=== PATIENT | female | born 1985 | race Two or more races ===

== ENCOUNTER 2024-08-04 21:13 | Emergency (ER) | payer MEDICAID, SELFPAY ==
[2024-08-04 21:14] VITALS: BMI 90.8
[2024-08-04 21:22] VITALS: BP 139/94; PULSE 94; RESP 16; TEMP 36.4; O2SAT 98
--- NOTE | 2024-08-04 21:28 | XR_ITS ---
Examination: Ribs, left, with PA chest, 5 views Technique: Chest PA, RIBS AP, RPO, LPO, AP coned lower ribs 5 views Exam date and time: August 04, 2024 at 9:48 PM Indications: Injury to the left chest 4 days ago, left rib pain Findings: Normal heart size No pneumothorax No acute rib fractures Impression: No pneumothorax pulmonary contusion or hemothorax No acute rib fractures
--- NOTE | 2024-08-04 21:36 | EDNOTE_ITS ---
ED General RME/HPI General Chief complaint: General Adult/Misc Complain Stated complaint: LEFT SIDE RIB PAIN Time Seen by Provider: 08/04/24 21:28 Source: patient Arrival date/time: 08/04/24 21:13 38-year-old female with no known medical history presents to the emergency room with a chief complaint of left-sided rib pain x 4 days. Patient states he was playing football on the street when she ran into a parked car. Mode of arrival: ambulatory Limitations: no limitations Related Data Previous Rx's ?Medication ?Instructions ?Recorded amoxicillin 875 mg-potassium 1 tab PO BID #30 tabs 12/11/23 clavulanate 125 mg tablet prednisone 50 mg tablet 50 mg PO QDAY #7 tabs 12/11/23 Allergies Allergy/AdvReac Type Severity Reaction Status Date / Time No Known Allergies Allergy Verified 12/11/23 04:40 Review of Systems Review of Systems Systems Reviewed: All systems reviewed, normal except as documented Constitutional Constitutional: Reports system reviewed and no additional complaints, except as documented, Denies fatigue, Denies fever(s), Denies headache(s) and Denies weakness Eyes Eyes: Reports system reviewed and no additional complaints, except as documented, Denies blurry vision and Denies change in vision ENT Ears, Nose, Mouth, and Throat: Reports system reviewed and no additional complaints, except as documented, Denies otalgia, Denies headache(s), Denies nasal congestion, Denies throat swelling and Denies vertigo Cardiovascular Cardiovascular: Reports system reviewed and no additional complaints, except as documented, Denies chest pain, Denies dyspnea and Denies dyspnea on exertion Respiratory Respiratory: Reports system reviewed and no additional complaints, except as documented, Denies chest congestion, Denies cough, Denies dyspnea, Denies dyspnea on exertion and Denies wheezing Gastrointestinal Gastrointestinal: Reports system reviewed and no additional complaints, except as documented, Denies abdominal pain, Denies cramping, Denies nausea and Denies vomiting Genitourinary Genitourinary: Reports system reviewed and no additional complaints, except as documented Musculoskeletal Musculoskeletal: Reports system reviewed and no additional complaints, except as documented, Reports arthralgias and Denies back pain Integumentary/Breasts Skin/Breast: Reports system reviewed and no additional complaints, except as documented and Denies wounds Neurologic Neurologic: Reports system reviewed and no additional complaints, except as documented, Denies confusion, Denies headache(s), Denies lack of coordination, Denies vertigo and Denies weakness Psychiatric Psychiatric: Reports system reviewed and no additional complaints, except as documented, Denies anxiety, Denies confusion, Denies depression, Denies paranoia, Denies suicidal ideation and Denies tactile hallucinations Endocrine Endocrine: Reports system reviewed and no additional complaints, except as documented and Denies fatigue Hematologic/Lymphatic Hematologic/Lymphatic: Reports system reviewed and no additional complaints, except as documented and Denies lymphadenopathy Allergic/Immunologic Allergic/Immunologic: Reports system reviewed and no additional complaints, except as documented, Denies throat swelling, Denies urticaria and Denies wheezing ED Exam General Limitations: Present no limitations General appearance: Present alert and in no apparent distress Head Head exam: Present atraumatic Eye Eye exam: Present normal appearance, PERRL and EOMI ENT ENT exam: Present normal exam, normal oropharynx and mucous membranes moist Neck Neck exam: Present normal inspection, full ROM and trachea midline Chest Chest inspection: Present normal inspection and symmetric chest wall rise Respiratory Respiratory exam: Present normal lung sounds bilaterally; Absent respiratory dis tress, wheezes, stridor, accessory muscle use or prolonged expiratory phase Cardiovascular Cardiovascular exam: Present regular rate, normal rhythm and normal heart sounds Abdominal Exam Abdominal exam: Present soft and normal bowel sounds Extremities Exam Extremities exam: Present normal inspection and full ROM Back Exam Back exam: Present normal inspection and full ROM Neurological Exam Neurological exam: Present alert, oriented X3 and CN II-XII intact Psychiatric Psychiatric exam: Present normal affect and normal mood Skin Skin exam: Present warm, dry, intact and normal color Course Quality Measures none Orders Category Date Time Status XR ribs LT min 3V w CXR1V Stat Exams 08/04/24 21:28 Completed Vital Signs Vital signs: Vital Signs Temperature 97.6 F 08/04/24 21:22 Pulse Rate 94 08/04/24 21:22 Respiratory Rate 16 08/04/24 21:22 Blood Pressure 139/94 H 08/04/24 21:22 Pulse Oximetry (%) 98 08/04/24 21:22 Oxygen Delivery Method Room Air 08/04/24 21:22 O2 saturation 98% within normal limits MDM Patient data External records reviewed:: [facility] previous records Clinical information provided by:: patient Social determinants that could affect healthcare access:: none Patient has the following chronic illnesses:: No chronic illness How is presenting disease/condition affected by chronic disease/condition?: no chronic disease Evaluation data The following diagnostics were reviewed and interpreted by me:: lab results and radiology exam(s) Lab and/or radiology exams considered but not ordered:: Labs and radiology exams considered and ordered Interpretation Summary: Left rib [id number]: Normal heart size No pneumothorax No acute rib fractures Impression: No pneumothorax pulmonary contusion or hemothorax No acute rib fractures Medications Medications considered but not ordered:: No medication given Medication administrations:: No medication given Consultations Consultation(s) initiated? (list below): No Diagnosis Differential Diagnosis ED Complaint MDM: Rib contusion/rib fracture/pneumo thorax/hemothorax Most likely diagnosis given after review of the tests above:: Rib contusion Admission Indicated Admission indicated?: not indicated Explain why admission is indicated or not indicated:: N/A Admission Request Was there a request for admission?: No Disposition Plan Disposition Plan: Discharge Discharge Attestation Discharge Attestation: The patient and all family members were given an opportunity to ask questions and understood the discharge instructions. Discharge instructions specifically effects, indications for sooner follow up or return to the emergency department, and the expected course of current diagnosis. Patient condition: Stable Medical Decision Making MDM Narrative MDM Narrative: 38-year-old female with no known medical history presents to the emergency room with a chief complaint of left-sided rib pain x 4 days. Patient states he was playing football on the street when she ran into a parked car. Clinically the patient appears nontoxic and in no apparent distress. Physical examination shows pain and tenderness to the left ribs during palpation. The patient has clear bilateral lung sounds to auscultation. X-ray of the left ribs was completed and was negative for any acute fractures. There is no pneumothorax or hemothorax. Patient was discharged and educated to follow-up with primary care provider and return to the emergency room for any evidence of worsening signs or symptoms Differential Diagnosis Differential Diagnosis: Rib contusion/rib fracture/pneumothorax/hemothorax Discharge Plan Plan Patient Disposition: HOME (Self Care) Disposition Comment: Stable Prescriptions/Referrals Prescriptions/Med Rec: No Action prednisone 50 mg tablet 50 mg PO QDAY Qty: 7 0RF amoxicillin-pot clavulanate 875-125 mg tablet 1 tab PO BID Qty: 30 0RF Referrals: Percy Luong MD [Primary Care Provider] - In 1 week Problem List Clinical Impression: Contusion of rib on left side Patient/Caregiver Discharge Instructions Education Materials: ED Chest Wall Contusion, ED Contusion, Rib Additional Instructions: Please follow-up with your primary care provider next 24 to 48 hours. Chest x-ray was completed and was negative for any rib fractures or injuries to your lungs. For any evidence of worsening signs or symptoms please return to the emergency room immediately Print Language: Venezuelan Stand Alone Forms: Myrna Award Info., Patient Portal Info Letter PA/SALES LEDGER ADMINISTRATOR Supervising Physician PA/SALES LEDGER ADMINISTRATOR Supervising Physician: Dr. Chowdhury
[2024-08-04 22:36] VITALS: RESP 18
== END 2024-08-04 22:36 | disposition home or self-care (01) ==
PROVIDERS: Emergency Provider Emergency Medicine; PCP Family Medicine
DX: S20.212A Contusion of left front wall of thorax, initial encounter (principal); W22.8XXA Striking against or struck by other objects, initial encounter; Y93.61 Activity, american tackle football; Y92.810 Car as the place of occurrence of the external cause
CPT/HCPCS: 71101; 99283

== ENCOUNTER 2024-09-19 20:58 | Emergency (ER) | payer MEDICAID, SELFPAY ==
[2024-09-19 20:59] VITALS: BMI 41.1
[2024-09-19 21:21] VITALS: BP 117/84; PULSE 106; RESP 18; TEMP 36.9; O2SAT 97
--- NOTE | 2024-09-19 21:38 | PD.EDEAR ---
ED Ear RME/HPI General Chief complaint: Ear Stated complaint: BILAT EARPAIN, THROAT PAIN, CONGESTION, RASH Time Seen by Provider: 09/19/24 21:04 Arrival date/time: 09/19/24 20:58 This is a 39-year-old female that comes in with complaints of bilateral ear pain for the past week. Patient also complains of sore throat and a rash throughout her body. Patient reports that her left ear was supposed to have surgery to repair the TM but she never had the surgery. Patient reports trouble hearing to both ears that has been going on for years. Patient denies any fever or chills. Related Data Previous Rx's ?Medication ?Instructions ?Recorded amoxicillin 875 mg-potassium 1 tab PO BID #30 tabs 12/11/23 clavulanate 125 mg tablet prednisone 50 mg tablet 50 mg PO QDAY #7 tabs 12/11/23 amoxicillin 875 mg-potassium 1 tab PO Q12H #14 tabs 09/19/24 clavulanate 125 mg tablet diphenhydramine HCl 25 mg capsule 50 mg (2 x 25 mg) PO TID PRN 09/19/24 (Benadryl) allergy symptoms #20 caps ibuprofen 800 mg tablet 800 mg PO Q6H PRN pain #14 tabs 09/19/24 Allergies Allergy/AdvReac Type Severity Reaction Status Date / Time No Known Allergies Allergy Verified 12/11/23 04:40 Review of Systems Review of Systems Systems Reviewed: All systems reviewed, normal except as documented Past Medical History Past Medical History Comments PMH COMMENT: no pmh ED Exam General General appearance: Present alert and in no apparent distress Head Head exam: Present atraumatic Eye Eye exam: Present normal appearance, PERRL and EOMI ENT ENT exam: Present normal oropharynx, mucous membranes moist and other (Left TM loss of landmarks. Ear canal erythemic and painful to manipulate.) Neck Neck exam: Present normal inspection, full ROM and trachea midline Chest Chest inspection: Present normal inspection and symmetric chest wall rise Respiratory Respiratory exam: Present normal lung sounds bilaterally Cardiovascular Cardiovascular exam: Present regular rate Abdominal Exam Abdominal exam: Present soft Extremities Exam Extremities exam: Present normal inspection and full ROM Back Exam Back exam: Present normal inspection and full ROM Neurological Exam Neurological exam: Present alert, oriented X3 and CN II-XII intact Psychiatric Psychiatric exam: Present normal affect and normal mood Skin Skin exam: Present warm, dry, intact and normal color Course Quality Measures none Orders Category Date Time Status Acetaminophen Tab [Tylenol ES Tab] Med 09/19/24 21:37 Discontinued 1,000 mg PO X1 ONE DiphenhydrAMINE [Benadryl] Med 09/19/24 21:37 Discontinued 50 mg PO X1 ONE Famotidine [Pepcid] Med 09/19/24 21:37 Discontinued 20 mg PO X1 ONE Ibuprofen Tab [Motrin Tab] Med 09/19/24 21:37 Discontinued 800 mg PO X1 ONE Vital Signs Vital signs: Vital Signs Temperature 98.5 F 09/19/24 21:21 Pulse Rate 106 H 09/19/24 21:21 Respiratory Rate 18 09/19/24 21:21 Blood Pressure 117/84 09/19/24 21:21 Pulse Oximetry (%) 97 09/19/24 21:21 Oxygen Delivery Method Room Air 09/19/24 21:21 Ear MDM Narrative MDM Narrative:: Patient's left TM abnormal unable to see landmarks well. Ear canal erythemic and painful to manipulate. Will treat for OM. Patient explained the importance of follow-up with primary provider in 1 to 2 days. Come back to the emergency room if symptoms change or worsen. Patient given Tylenol, ibuprofen, Benadryl, and Pepcid. Patient feels better. Will treat for otitis media. Patient data External records reviewed:: [facility] previous records Clinical information provided by:: patient Social determinants that could affect healthcare access:: none Patient has the following chronic illnesses:: none How is presenting disease/condition affected by chronic disease/condition?: no chronic disease Evaluation data The following diagnostics were reviewed and interpreted by me:: other (specify) (none ) Lab and/or radiology exams considered but not ordered:: none Interpretation Summary: none Medications / Prescriptions Medications or Prescriptions considered but not ordered:: none Medication administrations:: Medication Administration History Discontinued Medications Acetaminophen (Acetaminophen 500 Mg Tablet) 1,000 mg PO X1 ONE Stop: 09/19/24 21:38 Last Admin: 09/19/24 21:46 Dose: 1,000 mg Documented By: DB Diphenhydramine HCl (Diphenhydramine 25 Mg Capsule) 50 mg PO X1 ONE Stop: 09/19/24 21:38 Last Admin: 09/19/24 21:46 Dose: 50 mg Documented By: DB Famotidine (Famotidine 20 Mg Tablet) 20 mg PO X1 ONE Stop: 09/19/24 21:38 Last Admin: 09/19/24 21:46 Dose: 20 mg Documented By: MEIR Ibuprofen (Ibuprofen Tab 400 Mg Tablet) 800 mg PO X1 ONE Stop: 09/19/24 21:38 Last Admin: 09/19/24 21:46 Dose: 800 mg Documented By: MEIR see mar Consultations Consultation(s) initiated? (list below): No Diagnosis Most likely diagnosis given after review of the tests above:: ottis media Admission Indicated Admission indicated?: not indicated Admission Request Was there a request for admission?: No Disposition Plan Disposition Plan: Discharge Discharge Attestation Discharge Attestation: The patient and all family members were given an opportunity to ask questions and understood the discharge instructions. Discharge instructions specifically effects, indications for sooner follow up or return to the emergency department, and the expected course of current diagnosis. Patient condition: Stable Medical Decision Making MDM Narrative MDM Narrative: Patient given Tylenol, ibuprofen, Benadryl, and Pepcid. Patient feels better. Will treat for otitis media. Discharge Plan Plan Patient Disposition: HOME (Self Care) Patient condition on transfer: Stable Prescriptions/Referrals Prescriptions/Med Rec: New amoxicillin-pot clavulanate 875-125 mg tablet 1 tab PO Q12H Qty: 14 0RF ibuprofen 800 mg tablet 800 mg PO Q6H PRN (Reason: pain) Qty: 14 0RF diphenhydramine HCl [Benadryl] 25 mg capsule 50 mg PO TID PRN (Reason: allergy symptoms) Qty: 20 0RF No Action prednisone 50 mg tablet 50 mg PO QDAY Qty: 7 0RF amoxicillin-pot clavulanate 875-125 mg tablet 1 tab PO BID Qty: 30 0RF Problem List Clinical Impression: Otitis media, Rash Patient/Caregiver Discharge Instructions Discharge Activity: activity as tolerated Education Materials: ED Otitis Media Antibiotic ... Additional Instructions: Follow up with primary provider in 1-2 days. Come back to ED if symptoms change or worsen Print Language: Greek Stand Alone Forms: Myrna Award Info., Work/School Release, Patient Portal Info Letter PA/BELEN Supervising Physician PA/BELEN Supervising Physician: valentina
[2024-09-19] MEDS: FAMOTIDINE 20 MG TABLET PO (21:46)
[2024-09-19] MEDS: DiphenhydrAMINE 25 MG CAPSULE 50 MG PO (21:46)
[2024-09-19] MEDS: ACETAMINOPHEN 500 MG TABLET 1000 MG PO (21:46)
[2024-09-19] MEDS: IBUPROFEN TAB 400 MG TABLET 800 MG PO (21:46)
== END 2024-09-19 22:09 | disposition home or self-care (01) ==
PROVIDERS: Emergency Provider Emergency Medicine
DX: H66.93 Otitis media, unspecified, bilateral (principal); R21 Rash and other nonspecific skin eruption
CPT/HCPCS: 99282; A9270

== ENCOUNTER 2025-03-14 10:58 | Emergency (ER) | payer MEDICAID, SELFPAY ==
--- NOTE | 2025-03-14 11:53 | XR_ITS ---
Examination: Foot, left, 3 views Technique: AP, oblique, lateral views foot, 3 views Date and time of exam: March 14, 2025, 11:55 AM INDICATIONS: Heel pain beginning yesterday post injury. FINDINGS: No fracture. No dislocation. 4 mm plantar bony calcaneal spur IMPRESSION: 4 mm plantar bony calcaneal spur
--- NOTE | 2025-03-14 11:53 | XR_ITS ---
Examination: Left os calcis 2 views TECHNIQUE: Axial lateral left os calcis 2 views Date and time: March 14, 2025, 3:00 PM INDICATIONS: Baseball injury to the heel yesterday, pain FINDINGS: 4 mm plantar bony calcaneal spur. No fracture IMPRESSION: 4 mm plantar bony calcaneal spur.
--- NOTE | 2025-03-14 11:54 | PD.EDANKLE ---
Lower Extremity Injury RME/HPI General Chief Complaint: Ankle/Foot Injury Stated Complaint: PAIN L) HEEL SINCE YESTERDAY Time Seen by Provider: 03/14/25 11:50 Source: patient Arrival date/time: 03/14/25 10:58 Mode of arrival: wheelchair Limitations: no limitations RME / HPI RME / HPI Narrative: 39 year old female here today with pain at her left foot/heel since yesterday. She states her pain started yesterday after playing baseball. She had no fall or twisting injury. She is non-weight bearing. She has no knee pain. She has no back pain. She has no skin changes. There are no other acute complaints. Related Data Previous Rx's ?Medication ?Instructions ?Recorded amoxicillin 875 mg-potassium 1 tab PO BID #30 tabs 12/11/23 clavulanate 125 mg tablet prednisone 50 mg tablet 50 mg PO QDAY #7 tabs 12/11/23 amoxicillin 875 mg-potassium 1 tab PO Q12H #14 tabs 09/19/24 clavulanate 125 mg tablet diphenhydramine HCl 25 mg capsule 50 mg (2 x 25 mg) PO TID PRN 09/19/24 (Benadryl) allergy symptoms #20 caps ibuprofen 800 mg tablet 800 mg PO Q6H PRN pain #14 tabs 09/19/24 Allergies Allergy/AdvReac Type Severity Reaction Status Date / Time No Known Allergies Allergy Verified 03/14/25 11:00 Review of Systems Review of Systems Systems Reviewed: All systems reviewed, normal except as documented ED Exam General Limitations: Present no limitations General appearance: Present alert and in no apparent distress Head Head exam: Present atraumatic Eye Eye exam: Present normal appearance and PERRL ENT ENT exam: Present normal exam, normal oropharynx and mucous membranes moist Neck Neck exam: Present normal inspection, full ROM and trachea midline Chest Chest inspection: Present normal inspection and symmetric chest wall rise Respiratory Respiratory exam: Present normal lung sounds bilaterally Cardiovascular Cardiovascular exam: Present regular rate, normal rhythm and normal heart sounds Abdominal Exam Abdominal exam: Present soft and normal bowel sounds Extremities Exam Extremities exam: Present normal inspection, full ROM and other (No erythema or induration. No puncture wounds. There is tenderness to palpation at the anterior aspect of the calcaneus along the plantar surface of the affected foot.) Back Exam Back exam: Present normal inspection and full ROM Neurological Exam Neurological exam: Present alert and oriented X3 Psychiatric Psychiatric exam: Present normal affect and normal mood Skin Skin exam: Present warm, dry, intact and normal color Course Quality Measures none Orders Category Date Time Status XR calcaneus LT min 2V Stat Exams 03/14/25 11:53 Completed XR foot comp LT min 3V Stat Exams 03/14/25 11:53 Completed Ibuprofen Tab [Motrin Tab] Med 03/14/25 11:53 Discontinued 600 mg PO X1 ONE Vital Signs Vital signs: Vital Signs Temperature 98.5 F 03/14/25 11:55 Pulse Rate 87 03/14/25 11:55 Respiratory Rate 18 03/14/25 11:55 Blood Pressure 108/70 03/14/25 11:55 Pulse Oximetry (%) 99 03/14/25 11:55 Oxygen Delivery Method Room Air 03/14/25 11:55 Extremity Injury, Lower MDM Narrative MDM Narrative:: 39 year old female here today with pain at her left foot/heel since yesterday. She states her pain started yesterday after playing baseball. She had no fall or twisting injury. She is non-weight bearing. She has no knee pain. She has no back pain. She has no skin changes. There are no other acute complaints. On exam, patient is nontoxic-appearing in no visible signs stress. Vital signs are stable. She is mildly tender at the anterior aspect of the calcaneus along the plantar surface. There is no puncture wounds. No erythema, warmth, or induration. Plain films were obtained which reveal no acute osseous injury. There is mention of a bone spur. This may be the etiology of her symptoms. This discussed with the patient. She is vies to apply frequent cool compresses. Use Tylenol and ibuprofen for comfort. Contact your primary doctor for follow-up. Consider outpatient podiatry referral. Return here at anytime for any worsening or emergent changes. Patient data External records reviewed:: [facility] previous records Clinical information provided by:: patient Social determinants that could affect healthcare access:: none Patient has the following chronic illnesses:: n/a How is presenting disease/condition affected by chronic disease/condition?: no chronic disease Evaluation data The following diagnostics were reviewed and interpreted by me:: radiology exam(s) Lab and/or radiology exams considered but not ordered:: n/a Interpretation Summary: No acute osseous injury, bone spur present Medications / Prescriptions Medications or Prescriptions considered but not ordered:: n/a Medication administrations:: Medication Administration History Discontinued Medications Ibuprofen (Ibuprofen Tab 600 Mg Tablet) 600 mg PO X1 ONE Stop: 03/14/25 11:54 Last Admin: 03/14/25 13:15 Dose: 600 mg Documented By: EMMIE See above Consultations Consultation(s) initiated? (list below): No Diagnosis Most likely diagnosis given after review of the tests above:: bone spur Admission Indicated Admission indicated?: not indicated Admission Request Was there a request for admission?: No Disposition Plan Disposition Plan: Discharge Discharge Attestation Discharge Attestation: The patient and all family members were given an opportunity to ask questions and understood the discharge instructions. Discharge instructions specifically effects, indications for sooner follow up or return to the emergency department, and the expected course of current diagnosis. Patient condition: Stable Discharge Plan Plan Patient Disposition: HOME (Self Care) Patient condition on transfer: Stable Prescriptions/Referrals Prescriptions/Med Rec: No Action prednisone 50 mg tablet 50 mg PO QDAY Qty: 7 0RF amoxicillin-pot clavulanate 875-125 mg tablet 1 tab PO BID Qty: 30 0RF amoxicillin-pot clavulanate 875-125 mg tablet 1 tab PO Q12H Qty: 14 0RF ibuprofen 800 mg tablet 800 mg PO Q6H PRN (Reason: pain) Qty: 14 0RF diphenhydramine HCl [Benadryl] 25 mg capsule 50 mg PO TID PRN (Reason: allergy symptoms) Qty: 20 0RF Referrals: Percy Luong MD [Primary Care Provider] - In 1 week Problem List Clinical Impression: Acute foot pain Patient/Caregiver Discharge Instructions Education Materials: ED Heel Spur Additional Instructions: - Apply frequent cold compress. 1 way of doing this is to place a water bottles in the freezer and roll your foot over it. - You may use Tylenol and ibuprofen for comfort. - Wear a firm soled shoe for stability and comfort. - Follow-up with your primary doctor and consider referral to podiatry for further care. - Return to the emergency room as needed for any worsening or emergent changes. Print Language: Sudanese Stand Alone Forms: Myrna Award Info., Work/School Release, Patient Portal Info Letter
[2025-03-14 11:55] VITALS: BP 108/70; PULSE 87; RESP 18; TEMP 36.9; O2SAT 99; BMI 38.8
[2025-03-14] MEDS: IBUPROFEN TAB 600 MG TABLET PO (13:15)
== END 2025-03-14 13:19 | disposition home or self-care (01) ==
PROVIDERS: Emergency Provider Emergency Medicine; PCP Family Medicine
DX: M79.672 Pain in left foot (principal)
CPT/HCPCS: 73630; 73650; 99283; A9270

== ENCOUNTER 2025-05-30 05:30 | Emergency (ER) | payer MEDICAID, SELFPAY ==
[2025-05-30 05:32] VITALS: BMI 41.1
[2025-05-30 05:40] VITALS: BP 119/86; PULSE 78; RESP 18; TEMP 36.4; O2SAT 100
--- NOTE | 2025-05-30 05:41 | XR_ITS ---
Examination: Abdomen sonogram, Limited Date and time of exam: May 30, 2025, 0727 hours INDICATIONS: Epigastric pain and vomiting today, cholecystectomy several years ago. Technique: Real-time rosales scale transabdominal sonographic images of the upper abdomen obtained. Findings: Absent gallbladder Common bile duct 0.7 cm no definite stones Pancreatic head 2.9 cm Liver 14.6 cm fatty infiltration no focal liver lesions Normal hepatopetal portal venous flow Patent IVC IMPRESSION: Absent gallbladder Common bile duct 0.7 cm no definite stones If biliary colic is a clinical consideration, consider MRCP follow-up
--- NOTE | 2025-05-30 05:41 | PD.EDRME ---
Rapid Medical Screening Exam RME Arrival date/time: 05/30/25 05:30 This is a case of 39-year-old female with no medical history came in in the emergency room due to right sided abdominal pain associated with nausea vomiting for 2 days worsening of the symptoms this patient decided to sought consult here in the emergency room Chief Complaint: Abdominal Pain Time Seen by Provider: 05/30/25 05:39 Exam: Tenderness right upper quadrant no guarding no rebound no rigidity Clinical Impression: Abdominal pain
[2025-05-30 06:22] LABS: Collection Type, Urine Clean Catch
--- NOTE | 2025-05-30 06:25 | EDNOTE_ITS ---
<Statement entered by Rosie Garza MD - 05/30/25 17:55> As co-signing physician, I was present and available for consult prn. I concur with the plan and care as documented by the midlevel provider. ED Abdominal Pain RME/HPI General Chief Complaint: Abdominal Pain Stated complaint: upper abd pain Time seen by provider: 05/30/25 05:39 Arrival date/time: 05/30/25 05:30 39-year-old female with no known medical history presents to the emergency room with a chief complaint of upper abdominal pain x 2 days Source: patient Mode of arrival: ambulatory Limitations: no limitations RME / HPI RME / HPI narrative: 05/30/25 05:30 This is a case of 39-year-old female with no medical history came in in the emergency room due to right sided abdominal pain associated with nausea vomiting for 2 days worsening of the symptoms this patient decided to sought consult here in the emergency room Exam: Tenderness right upper quadrant no guarding no rebound no rigidity Impression: Abdominal pain Related Data Previous Rx's ?Medication ?Instructions ?Recorded amoxicillin 875 mg-potassium 1 tab PO BID #30 tabs clavulanate 125 mg tablet prednisone 50 mg tablet 50 mg PO QDAY #7 tabs amoxicillin 875 mg-potassium 1 tab PO Q12H #14 tabs clavulanate 125 mg tablet diphenhydramine HCl 25 mg capsule 50 mg (2 x 25 mg) PO TID PRN 09/19/24 (Benadryl) allergy symptoms #20 caps ibuprofen 800 mg tablet 800 mg PO Q6H PRN pain #14 t abs 09/19/24 ondansetron 4 mg disintegrating 4 mg PO Q8H PRN nausea and 05/30/25 tablet vomiting #14 tabs Allergies Allergy/AdvReac Type Severity Reaction Status Date / Time No Known Allergies Allergy Verified 05/30/25 05:35 Review of Systems Review of Systems Systems Reviewed: All systems reviewed, normal except as documented Constitutional Constitutional: Reports system reviewed and no additional complaints, except as documented, Denies fatigue, Denies fever(s), Denies headache(s) and Denies weakness Eyes Eyes: Reports system reviewed and no additional complaints, except as documented, Denies blurry vision and Denies change in vision ENT Ears, Nose, Mouth, and Throat: Reports system reviewed and no additional complaints, except as documented, Denies otalgia, Denies headache(s), Denies nasal congestion, Denies throat swelling and Denies vertigo Cardiovascular Cardiovascular: Reports system reviewed and no additional complaints, except as documented, Denies chest pain, Denies dyspnea and Denies dyspnea on exertion Respiratory Respiratory: Reports system reviewed and no additional complaints, except as documented, Denies chest congestion, Denies cough, Denies dyspnea, Denies dyspnea on exertion and Denies wheezing Gastrointestinal Gastrointestinal: Reports system reviewed and no additional complaints, except as documented, Reports abdominal pain, Reports cramping, Reports nausea and Reports vomiting Genitourinary Genitourinary: Reports system reviewed and no additional complaints, except as documented Musculoskeletal Musculoskeletal: Reports system reviewed and no additional complaints, except as documented and Denies back pain Integumentary/Breasts Skin/Breast: Reports system reviewed and no additional complaints, except as documented and Denies wounds Neurologic Neurologic: Reports system reviewed and no additional complaints, except as documented, Denies confusion, Denies headache(s), Denies lack of coordination, Denies vertigo and Denies weakness Psychiatric Psychiatric: Reports system reviewed and no additional complaints, except as documented, Denies anxiety, Denies confusion, Denies depression, Denies paranoia, Denies suicidal ideation and Denies tactile hallucinations Endocrine Endocrine: Reports system reviewed and no additional complaints, except as documented and Denies fatigue Hematologic/Lymphatic Hematologic/Lymphatic: Reports system reviewed and no additional complaints, except as documented and Denies lymphadenopathy Allergic/Immunologic Allergic/Immunologic: Reports system reviewed and no additional complaints, except as documented, Denies throat swelling, Denies urticaria and Denies wheezing Past Medical History Past Medical History CARDIAC: Negative Cardiac Disorders or Congestive Heart Failure RESPIRATORY: Positive Asthma (as a kid); Negative Chronic Obstructive Pulmonary Disease (COPD) GASTROINTESTINAL: Positive Gastrointestinal Disorders and Gall Bladder Disease GENITOURINARY: Negative Renal Disease REPRODUCTIVE: Positive Previous Pregnancies (Csection) ENDOCRINE: Negative Diabetes Mellitus Type 1 or Diabetes Mellitus Type 2 HEMATOLOGIC: Negative Sickle Cell Disease Social History SMOKING STATUS: Former smoker ED Exam General Limitations: Present no limitations General appearance: Present alert and in no apparent distress Head Head exam: Present atraumatic Eye Eye exam: Present normal appearance, PERRL and EOMI ENT ENT exam: Present normal exam, normal oropharynx and mucous membranes moist Neck Neck exam: Present normal inspection, full ROM and trachea midline Chest Chest inspection: Present normal inspection and symmetric chest wall rise Respiratory Respiratory exam: Present normal lung sounds bilaterally Cardiovascular Cardiovascular exam: Present regular rate, normal rhythm and normal heart sounds Abdominal Exam Abdominal exam: Present soft, tenderness and normal bowel sounds; Absent distention, guarding, rebound or rigidity Abdominal tenderness: Present RUQ, epigastrium and moderate Extremities Exam Extremities exam: Present normal inspection and full ROM Back Exam Back exam: Present normal inspection and full ROM Neurological Exam Neurological exam: Present alert, oriented X3 and CN II-XII intact Psychiatric Psychiatric exam: Present normal affect and normal mood Skin Skin exam: Present warm, dry, intact and normal color Course Quality Measures none Orders Category Date Time Status US gall bladder Stat Exams 05/30/25 05:41 Completed CBC Stat Lab 05/30/25 06:54 Completed Comprehensive Metabolic Panel Stat Lab 05/30/25 06:54 Completed HCG Qualitative,Urine Stat Lab 05/30/25 06:15 Completed Lipase Stat Lab 05/30/25 06:54 Completed Urinalysis Stat Lab 05/30/25 06:15 Completed Vital Signs Vital signs: Vital Signs Temperature 97.5 F 05/30/25 05:40 Pulse Rate 78 05/30/25 05:40 Respiratory Rate 18 05/30/25 05:40 Blood Pressure 119/86 H 05/30/25 05:40 Pulse Oximetry (%) 100 05/30/25 05:40 Oxygen Delivery Method Room Air 05/30/25 05:40 Abdominal Pain MDM MDM Narrative MDM Narrative:: 39-year-old female with no known medical history presents to the emergency room with a chief complaint of upper abdominal pain x 2 days Patient is hemodynamically stable and in no apparent distress Physical examination shows tenderness to the upper abdominal area with palpation. During my reevaluation the patient states her pain has significantly improved. Ultrasound of the gallbladder was completed and there is an absent gallbladder however the common bile duct has some mild enlargement. Bilirubin levels within normal limits. Liver enzymes are within normal limits. The patient during reevaluation states her pain has significantly improved. At this point I do not think the patient needs an MRCP but the patient was instructed to return to the emergency room for any evidence of worsening signs or symptoms Patient was discharged and educated to follow-up with primary care provider in the next 24 to 48 hours and return to the emergency room for any evidence of worsening signs or symptoms Patient data External records reviewed:: [facility] previous records Clinical information provided by:: patient Social determinants that could affect healthcare access:: none Patient has the following chronic illnesses:: No chronic illness How is presenting disease/condition affected by chronic disease/condition?: no chronic disease Evaluation data The following diagnostics were reviewed and interpreted by me:: lab results and radiology exam(s) Lab and/or radiology exams considered but not ordered:: Labs and radiology exams considered and ordered Interpretation Summary: Ultrasound gallbladder-Findings: Absent gallbladder Common bile duct 0.7 cm no definite stones Pancreatic head 2.9 cm Liver 14.6 cm fatty infiltration no focal liver lesions Normal hepatopetal portal venous flow Patent IVC IMPRESSION: Absent gallbladder Common bile duct 0.7 cm no definite stones If biliary colic is a clinical consideration, consider MRCP follow-up Medications / Prescriptions Medications or Prescriptions considered but not ordered:: No medication given Medication administrations:: No medication given Consultations Consultation(s) initiated? (list below): No Diagnosis Differential diagnosis abdominal pain: abdominal pain, acute appendicitis, constipation, gastroenteritis and other (Cholelithiasis/cholecystitis) Most likely diagnosis given after review of the tests above:: Gastroenteritis Admission Indicated Admission indicated?: not indicated Admission Request Was there a request for admission?: No Disposition Plan Disposition Plan: Discharge Discharge Attestation Discharge Attestation: The patient and all family members were given an opportunity to ask questions and understood the discharge instructions. Discharge instructions specifically effects, indications for sooner follow up or return to the emergency department, and the expected course of current diagnosis. Patient condition: Stable Discharge Plan Plan Patient Disposition: HOME (Self Care) Discharge Disposition comment: Stable Prescriptions/Referrals Prescriptions/Med Rec: New ondansetron 4 mg tablet,disintegrating 4 mg PO Q8H PRN (Reason: nausea and vomiting) Qty: 14 0RF No Action prednisone 50 mg tablet 50 mg PO QDAY Qty: 7 0RF amoxicillin-pot clavulanate 875-125 mg tablet 1 tab PO BID Qty: 30 0RF amoxicillin-pot clavulanate 875-125 mg tablet 1 tab PO Q12H Qty: 14 0RF ibuprofen 800 mg tablet 800 mg PO Q6H PRN (Reason: pain) Qty: 14 0RF diphenhydramine HCl [Benadryl] 25 mg capsule 50 mg PO TID PRN (Reason: allergy symptoms) Qty: 20 0RF Referrals: Percy Luong MD [Primary Care Provider, Family Practice] - In 1 week Problem List Clinical Impression: Gastroenteritis Patient/Caregiver Discharge Instructions Education Materials: Understanding Colitis, ED Gastroenteritis, Noninfectious Additional Instructions: Please follow-up with your primary care provider in the next 24 to 48 hours Your blood work and urinalysis were within normal limits. Your liver ultrasound was negative for any acute findings For any evidence of worsening signs or symptoms return to the emergency room immediately Print Language: Syriac Stand Alone Forms: Myrna Award Info., Work/School Release, Patient Portal Info Letter PA/TERMINAL SUPERVISOR Supervising Physician PA/TERMINAL SUPERVISOR Supervising Physician: Dr. Wooten
[2025-05-30 06:44] LABS: Bilirubin,Urine Negative (Negative); Blood,Urine Negative (Negative); Clarity,Urine Clear (Clear/Hazy); Color,Urine Lt-Yellow (Lt Yel-Yel); Glucose, Urine Negative (Negative); Ketones,Urine Negative (Negative); Leukocyte Esterase,Urine Negative (Negative); Nitrite,Urine Negative (Negative); PH,Urine 8.0 (5.0-7.0); Protein,Urine Negative (Neg - Trace); RBC,Urine 1 /hpf (0-3); Specific Gravity,Urine 1.021 (1.001-1.035); Squamous Epithelial Cell,Urine 1 /hpf (0-5); Urobilinogen,Urine Negative mg/dL (0.0-1.0); WBC,Urine < 1 /hpf (0-5)
[2025-05-30 06:46] LABS: HCG Qualitative,Urine Negative
[2025-05-30 07:12] LABS: Basophils # (Auto) 0.0 Thou/mm3 (0.0-0.2); Basophils % (Auto) 1 % (0-2.5); Eosinophils # (Auto) 0.0 Thou/mm3 (0.0-0.5); Eosinophils % (Auto) 1 % (0-10); Hematocrit 39.0 % (36.0-46.0); Hemoglobin 13.3 g/dL (12.0-16.0); Immature Granulocytes Auto 0.01 Thou/mm3 (0.00-0.00); Lymphocytes # (Auto) 0.6 Thou/mm3 (1.0-4.8); Lymphocytes % (Auto) 14 % (10-50); Mean Corpuscular HGB Conc 34.1 g/dl (31.0-37.0); Mean Corpuscular Hemoglobin 29.8 pg (25.0-35.0); Mean Corpuscular Volume 87 fL (80-100); Monocytes # (Auto) 0.3 Thou/mm3 (0.0-0.8); Monocytes % (Auto) 8 % (0-12); Neutrophils # (Auto) 3.3 Thou/mm3 (1.8-7.7); Neutrophils % (Auto) 77 % (37-80); Nucleated Red Blood Cell # 0.00 Thou/mm3 (0.00-0.00); Nucleated Red Blood Cell % 0 /100 WBC (0); Platelet Count 254 Thou/mm3 (140-440); RDW Standard Deviation 39.9 fL (36.4-46.3); Red Blood Count 4.47 Miln/mm3 (4.00-5.20); White Blood Count 4.3 Thou/mm3 (3.6-11.0)
[2025-05-30 07:32] LABS: Alanine Aminotransferase 14 U/L (10-49); Albumin, Serum 4.5 gm/dL (3.5-5.0); Albumin/Globulin Ratio 1.8 (1.2-2.2); Alkaline Phosphatase 79 U/L (46-116); Anion Gap 6 (7-16); Aspartate Amino Transferase 19 U/L (0-34); BUN/Creatinine Ratio 13 Ratio (12-20); Bilirubin,Total 0.3 mg/dL (0.3-1.2); Blood Urea Nitrogen 8 mg/dL (9-23); Calcium 8.6 mg/dL (8.3-10.6); Calcium (Corrected) 8.6 mg/dL (8.5-10.1); Carbon Dioxide 26.5 mMol/L (20.0-31.0); Chloride 107 mMol/L (98-107); Creatinine (Component) 0.6 mg/dL (0.6-1.3); Estimated Creatinine Clearance 153.3 mL/min (>60); Globulin 2.5 gm/dL (2.3-3.5); Glucose 100 mg/dL (74-106); Lipase 23 U/L (12-53); Osmolality,Calculated 275 (275-295); Potassium 4.0 mMol/L (3.4-5.1); Sodium 139 mMol/L (136-145); Total Protein 7.0 gm/dL (5.7-8.2); eGFR > 60 See Note
== END 2025-05-30 09:06 | disposition home or self-care (01) ==
PROVIDERS: Nurse Practitioner Family; Emergency Provider Emergency Medicine; PCP Family Medicine
DX: K52.9 Noninfective gastroenteritis and colitis, unspecified (principal)
CPT/HCPCS: 36415; 76705; 80053; 81001; 81025; 83690; 85025; 99283